=== PATIENT | male | born 1995 | race Two or more races ===

== ENCOUNTER 2021-03-05 16:40 | Emergency (ER) | payer BC ==
[~2021-03-05] VITALS: Ht 170.2 cm; Wt 123.4 kg
--- NOTE | 2021-03-05 16:40 | NUR ---
PT BIBRA FROM HOME C/O PALPITATIONS STARTED 1HR RESIDENT CARE PROVIDER. PT IS AAOX4, NOT IN RESPIRATORY DISTRESS, HOOKED TO GENERAL TECHNICIAN, KEPT RESTED AND COMFORTABLE. WILL CONTINUE TO MONITOR.
--- NOTE | 2021-03-05 16:56 | NUR ---
SEEN AND EXAMINED BY ANA CLAYTON
--- NOTE | 2021-03-05 16:59 | NUR ---
[employer] AT BEDSIDE FOR XRAY.
[2021-03-05] MEDS ORDERED: LORAZEPAM INJ 2 MG/ML VIAL IV ONE (17:00)
[2021-03-05] MEDS ORDERED: LORAZEPAM INJ 2 MG/ML VIAL ONE (17:00)
[2021-03-05] MEDS ORDERED: IV NS 0.9% 1,000 ML BAG IV ONE ×2 (17:00→18:30)
--- NOTE | 2021-03-05 17:03 | NUR ---
ER PHLEB AT BEDSIDE FOR BLOOD DRAW.
[2021-03-05 17:22] LABS: BASOPHILS % (AUTO) 0.3 % (0.0-2.0); HEMATOCRIT 45 % (39-51); HEMOGLOBIN 15.2 g/dL (13.5-17.5); LYMPHOCYTES # (AUTO) 0.6 K/uL (0.8-4.8); LYMPHOCYTES % (AUTO) 4.9 % (20.0-44.0); MEAN CORPUSCULAR HGB CONC 34 g/dl (31.0-36.0); MEAN CORPUSCULAR VOLUME 90 fL (80-96); MONOCYTES # (AUTO) 0.6 K/uL (0.1-1.30); MONOCYTES % (AUTO) 5.1 % (2.0-12.0); NEUTROPHILS # (AUTO) 11.1 K/uL (1.8-8.9); NEUTROPHILS % (AUTO) 88.7 % (43.0-81.0); PLATELET COUNT (AUTO) 155 K/uL (150-450); RED BLOOD CELL COUNT(AUTO) 5.02 MIL/uL (4.5-6.0); WHITE BLOOD COUNT (AUTO) 12.5 K/uL (4.3-11.0)
[2021-03-05 17:30] LABS: CALCIUM, SERUM 8.8 mg/dL (8.5-10.1); CARBON DIOXIDE 29 mmol/L (21-32); CHLORIDE 101 mmol/L (98-107); CREATININE 0.7 mg/dL (0.6-1.3); GLUCOSE 115 mg/dL (74-106); POTASSIUM 3.4 mmol/L (3.5-5.1); SODIUM SERUM 137 mmol/L (136-145); UREA NITROGEN, BLOOD 8 mg/dL (7-18)
--- NOTE | 2021-03-05 18:30 | NUR ---
[employer] AT BEDSIDE FOR ULTRASOUND.
--- NOTE | 2021-03-05 19:04 | NUR ---
URINE SPECIMEN COLLECTED AND SENT TO LAB.
[2021-03-05 19:19] LABS: BILIRUBIN,URINE Negative (NEGATIVE); COLOR,URINE YELLOW (YELLOW); LEUKOCYTE ESTERASE ,URINE Negative (NEGATIVE); NITRITE, URINE Negative (NEGATIVE); PH,URINE 7.5 (5.0-8.0); PROTEIN,URINE Negative (NEGATIVE); UGLUCOSE Negative (NEGATIVE); UROBILINOGEN,URINE 0.2 EU/dL (0.2)
[2021-03-05 20:03] VITALS: BP 115/62
--- NOTE | 2021-03-05 20:04 | NUR ---
Patient discharged to home in stable condition. Written and verbal after care instructions given. Patient verbalizes understanding of instruction.
== END 2021-03-05 20:04 | disposition home or self-care (01) ==
LOC: ER 16:42
DX: R00.2 Palpitations (principal); R07.89 Other chest pain; F41.9 Anxiety disorder, unspecified; F32.9 Major depressive disorder, single episode, unspecified
CPT/HCPCS: 36415; 71045; 80048; 80307; 81003; 84484; 85025; 85378; 93005; 93970; 96361; 96374; 99285; J2060; J7030 ×2